=== PATIENT | male | born 1955 | race Caucasian/White ===

== ENCOUNTER → 2020-06-13 | Outpatient (CLI) | payer OTHER, MEDICARE ==
[2020-06-13] VITALS (7 sets, daily range): BP systolic 142–166; BP diastolic 69–92
[~2020-06-13] VITALS: Ht 185.4 cm; Wt 73.5 kg
[~2020-06-13] MED LIST: CALCITRIOL0.5 MCG PO
[2020-06-13 08:20] LABS: ABSOLUTE BASOPHILS 0.1 thou/uL (0.0-0.2); ABSOLUTE EOSINOPHILS 0.1 thou/uL (0.0-0.7); ABSOLUTE LYMPHOCYTES 1.2 thou/uL (0.8-5.3); ABSOLUTE MONOCYTES 0.5 thou/uL (0.0-1.2); ABSOLUTE NEUTROPHILS 3.1 thou/uL (1.6-8.1); BASOPHILS 1.3 %; EOSINOPHILS 2.1 %; HEMATOCRIT 34.7 % (42.0-52.0); HEMOGLOBIN 11.5 gm/dL (14.0-18.0); LYMPHOCYTES 23.3 %; MCH 31.2 pg (26.0-34.0); MCHC 33.2 g/dL (28.0-37.0); MPV 7.8 fl. (7.2-11.1); NUCLEATED RBCS 0 /100WBC; PLATELET COUNT* 286 thou/uL (150-400); POLYS 62.3 %; RBC 3.69 mil/uL (4.50-6.00); RDW-CV 13.5 % (10.5-14.5)
[2020-06-13 08:28] LABS: CALCIUM 8.1 mg/dL (8.5-10.1); POTASSIUM 4.9 mmol/L (3.5-5.1)
[2020-06-13 08:33] LABS: APTT 23.9 Seconds (25.0-31.3); PROTIME 10.2 Seconds (9.20-11.50)
--- NOTE | 2020-06-30 13:52 | NUR ---
LATE ENTRY FOR 06/13/2020: ATTEMPTED CT GUIDED BIOPSY. START TIME OF 944, STOP TIME OF 955.
== END | disposition home or self-care (01) ==
LOC: M.LAB 07:59 → M.CT 10:00 → M.LAB 06-20 09:00 → M.CT 06-20 10:00
PROVIDERS: ATTEND Family Medicine
DX: M79.9 Soft tissue disorder, unspecified (principal); Z53.8 Procedure and treatment not carried out for other reasons; N18.5 Chronic kidney disease, stage 5; Z98.890 Other specified postprocedural states; Z79.899 Other long term (current) drug therapy